=== PATIENT | female | born 1965 | race Caucasian/White ===

== ENCOUNTER 2019-08-16 13:39 | Outpatient (CLI) | payer OTHER, SELFPAY ==
--- NOTE | ~2019-08-16 | CT_ITS ---
EXAMINATION: CT sinus wo con DATE: 08/16/2019 14:09 INDICATION: Chronic sinusitis. TECHNIQUE: Computed tomography (CT) of the paranasal sinuses was performed without intravenous contra st. Iterative reconstruction technique was employed. The dose-length product was 278.92 mGy-cm. COMPARISON: None FINDINGS: The frontal sinuses are clear. There is mild mucosal thickening in the anterior ethmoid sin uses. The sphenoid sinuses are clear. There is a mucous retention cyst in left maxillary sinus. There is rightward deviation of posterior nasal septum. The ostiomeatal units are patent. IMPRESSION: 1. Mild mucosal thickening in the anterior ethmoid sinuses. Mucous retention cyst in left maxillary s inus. 2. Rightward deviation of posterior nasal septum. Reviewed, dictated and finalized at location A. IMPRESSION: 1. Mild mucosal thickening in the anterior ethmoid sinuses. Mucous retention cy st in left maxillary sinus. 2. Rightward deviation of posterior nasal septum.
== END 2019-08-16 13:40 | disposition home or self-care (01) ==
LOC: ANHIMG 13:50
PROVIDERS: PCP Internal Medicine; Visit Provider Internal Medicine
DX: J32.9 Chronic sinusitis, unspecified (principal); R05 Cough; J34.2 Deviated nasal septum
CPT/HCPCS: 70486

== ENCOUNTER → 2021-02-24 10:56 | Outpatient (CLI) | payer OTHER, SELFPAY ==
--- NOTE | ~2021-02-24 | MM_ITS ---
EXAMINATION: MM screening [facility] BI w mayuri HISTORY: Screening mammogram TECHNIQUE: Craniocaudal and mediolateral oblique 3-D tomosynthesis images were obtained and synthetic 2-D images were generated. CAD analysis was submitted and interpreted. COMPARISON: 10/30/2012, 11/29/2006 BREAST PARENCHYMAL COMPOSITION: The breasts are heterogeneously dense, which may obscure small masses . FINDINGS: There is no evidence of suspicious mass, calcification, or architectural distortion to sugg est malignancy in either breast. There has been no suspicious interval change. IMPRESSION: 1. No mammographic evidence of malignancy. 2. Recommend routine screening mammography in one year. BI-RADS Category 1: Negative Reviewed, dictated and finalized at location A.
--- NOTE | ~2021-02-24 | DEXA_ITS ---
Bone Density Report Name: Radha Salcido Age: 56 Sex: Female Ethnicity: White Date of : 1965 Indication: postmenopausal; screening for osteoporosis; height loss; hysterectomy; Referring Provider: Antoine*Gladys, Ashanti Study: Bone densitometry was performed. Exam Date: February 24, 2021 Accession number: [id number] Bone Density: Region BMD T-score Z-score Classification AP Spine (L1-L4) 1.058 0.1 1.4 Normal Femoral Neck (Left) 0.878 0.3 1.5 Normal Total Hip (Left) 1.029 0.7 1.6 Normal Femoral Neck (Right) 0.832 -0.2 1.0 Normal Total Hip (Right) 1.032 0.7 1.6 Normal Total Hip Mean 1.031 0.7 1.6 Normal World Health Organization criteria for BMD impression classify patients as: Normal (T-score at or above -1.0), Osteopenia (T-score between -1.0 and -2.5), or Osteoporosis (T-score at or below -2.5). 10-year Fracture Risk: FRAX not reported because: All T-scores for Spine Total, Hip Total, Femoral Neck at or above -1.0 Previous Exams: Region Exam Age BMD T-score BMD Change BMD Change Date g/cm2 vs Baseline vs Previous AP Spine(L1-L4) 02/24/2021 56 1.058 0.1 0.004 0.004 01/05/2017 51 1.054 0.1 Total Hip(Left) 02/24/2021 56 1.029 0.7 0.008 0.008 01/05/2017 51 1.021 0.6 Total Hip(Right) 02/24/2021 56 1.032 0.7 0.018 0.018 01/05/2017 51 1.014 0.6 *Denotes significance at 95% confidence level, LSC for AP Spine = 0.022 g/cm2, LSC for Total Hip = 0.027 g/cm2 Clinical Information Provided by Patient: Has used the following medications: Vitamin D, Calcium Has the following medical conditions: Hysterectomy Patient maximum height was 69 Menopause Age: 50 No regular weight bearing exercise Drinks caffeinated beverages Onset of menses at age 11 Number of children 0 Impression: The patient has normal bone mass. No significant bone loss was observed. Discussion: BONE DENSITY IS ABOVE THE MINIMUM DESIRABLE LEVEL AT ALL SKELETAL SITES TESTED. This patient?s bone mineral density is above the minimum desirable level (T-score -1.0 or better) at all sites measured. The patient should follow a healthful lifestyle (good nutrition with adequate calcium and vitamin D, and appropriate weight-bearing exercise). Follow-Up: Consider repeating this study in 5 years or sooner if there is some new clinical indication. Reported by: [facility] on 02/24/2021 11:23:00 AM.
== END ==
PROVIDERS: PCP Internal Medicine; Visit Provider Nurse Practitioner
DX: Z12.31 Encounter for screening mammogram for malignant neoplasm of breast (principal); Z13.820 Encounter for screening for osteoporosis; Z78.0 Asymptomatic menopausal state
CPT/HCPCS: 77063; 77067; 77080

== ENCOUNTER → 2022-09-01 13:33 | Outpatient (CLI) | payer BC, SELFPAY ==
--- NOTE | ~2022-09-01 | MM_ITS ---
EXAMINATION: MM screening [facility] BI w mayuri HISTORY: Screening mammogram TECHNIQUE: Craniocaudal and mediolateral oblique 3-D tomosynthesis images were obtained and synthetic 2-D images were generated. CAD analysis was submitted and interpreted. COMPARISON: 02/24/2021, 10/30/2012 bilateral screening mammogram examinations BREAST PARENCHYMAL COMPOSITION: The breasts are heterogeneously dense, which may obscure small masses . FINDINGS: Scattered punctate benign microcalcifications. There is no evidence of suspicious mass, riaz cification, or architectural distortion to suggest malignancy in either breast. There has been no kimmie picious interval change. IMPRESSION: 1. No mammographic evidence of malignancy. 2. Recommend routine screening mammography in one year. BI-RADS Category 1: Negative Reviewed, dictated and finalized at location A.
== END ==
PROVIDERS: PCP Internal Medicine; Visit Provider Obstetrics & Gynecology Gynecology
DX: Z12.31 Encounter for screening mammogram for malignant neoplasm of breast (principal)
CPT/HCPCS: 77063; 77067

== ENCOUNTER 2024-06-13 01:06 | Day surgery (SDC) | payer BC, SELFPAY ==
[2024-06-04 12:21] VITALS: BMI 32.5
[2024-06-13 11:05] VITALS: BP 144/76; PULSE 86; RESP 22; TEMP 36.3; O2SAT 99; BMI 32.7
[2024-06-13] MEDS: LACTATED RINGERS 1,000 ML 150 ML IV CONT (11:10)
--- NOTE | 2024-06-13 12:02 | PM.HPGS ---
History of Present Illness History of Present Illness Consent: Risks, benefits, and alternatives have been discussed and questions answered. Patient agrees to proceed with procedure. Chief complaint: screening colon Narrative: Radha Salcido is a 59 year old female here for screening colonoscopy, last one 10-11 years ago Review of Systems Review of Systems: All systems reviewed & are unremarkable except as noted in HPI and below PMFSH Past Medical History Medical History (Updated 06/12/24 @ 15:41 by Terrance Moore DO) Fibroid Pain of left thumb Blood donor Iron deficiency anemia Lipoma of neck Breast cancer screening Uterine leiomyoma Skin lesion of face Coccyxdynia Follow up Elevated LFTs BMI 36.0-36.9,adult BMI 35.0-35.9,adult Pre-diabetes Encounter for routine adult health examination without abnormal findings Chronic cough Recurrent sinus infections Vitamin D deficiency BMI 34.0-34.9,adult Encounter for screening mammogram for malignant neoplasm of breast Colon cancer screening Bronchitis Encounter for preventive health examination Hyperlipidemia Seasonal allergies On fpc drug therapy Hormone replacement therapy (HRT) Benign essential hypertension Family History Family History (Reviewed 05/09/24 @ 15:14 by Keturah Meehan [facility]) Mother Diabetes mellitus Family history of pancreatic cancer Family history of diabetes mellitus in first degree relative Father Malignant neoplasm of prostate Social History Social History (Reviewed 05/09/24 @ 15:14 by Keturah Meehan [facility]) Smoking status: Never smoker Second hand tobacco smoke exposure: No Alcohol intake: current Lack of Transportation: No Lack of Food: Never True Current Housing: I Have Housing Concerned About Future Housing: No Difficulty Paying Gas/Electric Bills: No Difficulty Paying for Meds: No Currently Unemployed: No Education: Master's Degree or Higher Difficulty w/ Childcare or Family Care: No Living arrangements: with family Occupation/Education: occupation Gender identity (if verbalized by the patient): Female Meds Home Medications and Allergies Home Medications ?Medication ?Instructions ?Recorded ?Confirmed ?Type biotin 10,000 mcg disintegrating 10,000 mcg PO DAILY 05/20/19 06/13/24 History tablet calcium carbonate (Calcium 600) 600 mg PO BID 05/20/19 06/13/24 History coenzyme Q10 100 mg tablet 200 mg PO DAILY 05/20/19 06/13/24 History magnesium 200 mg tablet 200 mg PO DAILY 05/20/19 06/13/24 History vitamin B complex 1 tablet PO DAILY 05/20/19 06/13/24 History omeg3-epa 150 mg-dha 100 mg-fish 1 cap PO ONCE 10/18/19 06/13/24 History oil-flaxseed oil 333 mg-E 61 unit cap ([employer] Nutrition) pen needle, diabetic 32 gauge x #100 ea 12/25/20 06/04/24 Rx 5/32 (BD Ultra-Fine Rolanda Pen Needle) estradiol 10 mcg vaginal insert 10 mcg vaginal 2XW 02/08/21 06/13/24 History (Imvexxy Maintenance Pack) fluticasone propionate 50 2 spray intranasal DAILY PRN 12/12/22 06/13/24 Rx mcg/actuation nasal seasonal allergies #9.9 mL spray,suspension lisinopril 10 See Rx Instructions .Route 05/04/23 06/13/24 Rx mg-hydrochlorothiazide 12.5 mg .COMPLEX #90 tabs tablet rosuvastatin 10 mg tablet See Rx Instructions .Route 04/22/24 06/13/24 Rx .COMPLEX #90 tabs semaglutide (weight loss) 2.4 2.4 mg (0.75 mL) subcut WEEKLY #3 05/09/24 06/13/24 Rx mg/0.75 mL subcutaneous pen mL injector (Wegovy) ferrous sulfate 325 mg (65 mg 325 mg PO DAILY 06/04/24 06/13/24 History iron) tablet (Feosol) Allergies Allergy/AdvReac Type Severity Reaction Status Date / Time MELON Allergy Unknown FACIAL Uncoded 06/13/24 11:02 SWELLING Vital Signs Vital Signs - 24 hr 06/13/24 11:05 Temperature 97.3 F L Pulse Rate 86 Respiratory Rate 22 H Blood Pressure 144/76 H Pulse Oximetry 99 Oxygen Delivery Room Air Exam Const: General: comfortable and no acute distress HENMT: Face/Nose/Sinus: Normal nares present Eyes: General: appearance normal, both eyes and all related structures Neck: Neck: no JVD Resp: Auscultation: clear to auscultation bilaterally Cardio: Rate: regular rate Rhythm: regular rhythm GI: Inspection: non-distended GI Palp: Yes Soft to palpation Skin: General skin exam: normal color Neuro: General: gait normal Speech: normal speech Extrem: General: normal to inspection Psych: Mental Status: mental status grossly normal Assessment and Plan Assessment and plan (1) Colon cancer screening: Code(s): Z12.11 - Encounter for screening for malignant neoplasm of colon Status: Acute Assessment and Plan: colonoscopy
--- NOTE | 2024-06-13 12:05 | P.PNAN_ITS ---
Anes - Initial Pre Proc Eval Procedure: Operation Date: 06/13/24 12:30 Proposed Procedures p Screening Colonoscopy - Rafy Cordon MD Date/Time: 06/13/24 12:05 Surgeon: Rafy Cordon MD Pre Op Diagnosis: screening colon Patient Data Age: 59 Gender: F Height: 1.75 m Weight: 100.5 kg Last Vital Signs Temp 36.3 C L 06/13/24 11:05 Pulse 86 06/13/24 11:05 Resp 22 H 06/13/24 11:05 BP 144/76 H 06/13/24 11:05 Pulse Ox 99 06/13/24 11:05 O2 Del Method Room Air 06/13/24 11:05 Allergies Allergy/AdvReac Type Severity Reaction Status Date / Time MELON Allergy Unknown FACIAL Uncoded 06/13/24 11:02 SWELLING Home Medications ?Medication ?Instructions ?Recorded ?Confirmed ?Type biotin 10,000 mcg disintegrating 10,000 mcg PO DAILY 05/20/19 06/13/24 History tablet calcium carbonate (Calcium 600) 600 mg PO BID 05/20/19 06/13/24 History coenzyme Q10 100 mg tablet 200 mg PO DAILY 05/20/19 06/13/24 History magnesium 200 mg tablet 200 mg PO DAILY 05/20/19 06/13/24 History vitamin B complex 1 tablet PO DAILY 05/20/19 06/13/24 History omeg3-epa 150 mg-dha 100 mg-fish 1 cap PO ONCE 10/18/19 06/13/24 History oil-flaxseed oil 333 mg-E 61 unit cap ([employer] Nutrition) pen needle, diabetic 32 gauge x #100 ea 12/25/20 06/04/24 Rx 5/32 (BD Ultra-Fine Rolanda Pen Needle) estradiol 10 mcg vaginal insert 10 mcg vaginal 2XW 02/08/21 06/13/24 History (Imvexxy Maintenance Pack) fluticasone propionate 50 2 spray intranasal DAILY PRN 12/12/22 06/13/24 Rx mcg/actuation nasal seasonal allergies #9.9 mL spray,suspension lisinopril 10 See Rx Instructions .Route 05/04/23 06/13/24 Rx mg-hydrochlorothiazide 12.5 mg .COMPLEX #90 tabs tablet rosuvastatin 10 mg tablet See Rx Instructions .Route 04/22/24 06/13/24 Rx .COMPLEX #90 tabs semaglutide (weight loss) 2.4 2.4 mg (0.75 mL) subcut WEEKLY #3 05/09/24 06/13/24 Rx mg/0.75 mL subcutaneous pen mL injector (Wegovy) ferrous sulfate 325 mg (65 mg 325 mg PO DAILY 06/04/24 06/13/24 History iron) tablet (Feosol) Patient hx anesthesia problems: none Family hx anesthesia problems: none Results Review: All pre-operative results and documents have been reviewed as part of the pre- operative evaluation. COUNTS INCLUDE 234 BEDS AT THE [facility] Past Medical History Medical History Fibroid Pain of left thumb Blood donor Iron deficiency anemia Lipoma of neck Breast cancer screening Uterine leiomyoma Skin lesion of face Coccyxdynia Follow up Elevated LFTs BMI 36.0-36.9,adult BMI 35.0-35.9,adult Pre-diabetes Encounter for routine adult health examination without abnormal findings Chronic cough Recurrent sinus infections Vitamin D deficiency BMI 34.0-34.9,adult Encounter for screening mammogram for malignant neoplasm of breast Colon cancer screening Bronchitis Encounter for preventive health examination Hyperlipidemia Seasonal allergies On fdc drug therapy Hormone replacement therapy (HRT) Benign essential hypertension Family History Family History Mother Diabetes mellitus Family history of pancreatic cancer Family history of diabetes mellitus in first degree relative Father Malignant neoplasm of prostate Social History Social History Smoking status: Never smoker Second hand tobacco smoke exposure: No Alcohol intake: current Lack of Transportation: No Lack of Food: Never True Current Housing: I Have Housing Concerned About Future Housing: No Difficulty Paying Gas/Electric Bills: No Difficulty Paying for Meds: No Currently Unemployed: No Education: Master's Degree or Higher Difficulty w/ Childcare or Family Care: No Living arrangements: with family Occupation/Education: occupation Gender identity (if verbalized by the patient): Female Anes - Eval Final PreProcedure Day of Procedure 06/13/24 12:05 Patient weight: obese Heart: regular rate and rhythm Lungs: normal air movement Airway: Mallampati scale class II Neurological: alert and oriented Last oral intake: >/= 8 hours ASA classification: II Emergent: no Anesthetic plan: proceed Anesthesia type and monitoring: general GIVS and standard monitoring Results Review: All pre-operative results and documents have been reviewed as part of the pre- operative evaluation. Informed Consent: The patient's anesthetic plan and its attendant risks and benefits were discussed with the patient/family/POA. Questions were solicited and answers provided to the satisfaction of the patient/family/POA.
[2024-06-13 12:26] VITALS: BP 94/71; PULSE 90; RESP 21; O2SAT 96
[2024-06-13 12:36] VITALS: BP 112/78; PULSE 75; RESP 19; O2SAT 100
[2024-06-13 12:46] VITALS: BP 126/70; PULSE 72; RESP 14; O2SAT 100
--- OUTSIDE RECORDS SUMMARY | 2024-06-14 03:45 | XMS_ITS | Clinical Summary ---
Author Organization [facility] Address [facility] 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 Gender Identity Not on file Sexual Orientation Not on file Plan of Treatment Health Maintenance Due Date Last Done Comments Cervical Cancer Screening Pa p Smear (Age 30 to 64) Every 3 Years 1965 Colorectal Cancer Screening Colonoscopy (10 Years) 1965 Annual Physical 1966 Hepatitis C 1981 DTaP, Tdap and Td Vaccines ( 1 - Tdap) 1982 Cervical Cancer Screening Pa p with HPV Testing (Age 30 to 64) Every 5 Years 1993 Cervical Cancer Screening wi th HPV 1993 Zoster Vaccines (1 of 2) 2013 Mammogram Screening 11/27/2021 11/28/2019, 05/29/2018 COVID-19 Vaccine (2023-2 5 season) 2024 Influenza Adult (#1) 2024 RSV Immunization or 60+ Years (1 - 1-dose 75+ series) 2038 Meningococcal Vaccine Aged Out No wai yuridia eligible based on patient's age to complete this topic Pneumococcal Vaccine: Pediatrics (0 to 5 Years) and At-Risk Patients (6 to 64 Years) Aged Out No longer eligible b ased on patient's age to complete this topic RSV Immunizations Under 20 Months Aged Out No longer eligible b ased on patient's age to complete this topic Procedures Procedure Name Priority Date/Time Associated Diagnosis Comments MG SCREENING W GARCIA DEANGELO DIGI Routine 11/28/2019 10:16 AM CDT Visit for screening mammogram from Last 3 Months or Most Recently Relevant to Health Maintenance Results * MG SCREENING W GARCIA DEANGELO DIGI (11/28/2019 10:16 AM CDT) Anatomical Region Laterality Modality Breast Bilateral Mammography 11/28/2019 3:28 PM CDT Impressions 11/28/2019 3:30 PM CDT IMPRESSION: No suspicious mammographic findings. Recommendation: 1. Routine Screening, BILATERAL Assessment: ACR BI-RADS 1 - NEGATIVE Interpreted By: True Cooper MD, 11/28/2019 3:28 PM Narrative 11/28/2019 3:30 PM CDT Examination: Screening bilateral mammogram Clinical history: Routine screening. No complaints. Comparison: 05/29/2018, 03/28/2017, 03/25/2016, 02/06/2015 Technique: Digital screening mammography of both breasts was performed. Breast tomosynthesis acquisitions were obtained and reviewed. ??This study was read with the assistance of a computer-aided detection system. Tissue density: The breast tissue is heterogeneously dense, which may obscure small masses. Findings: No suspicious masses, malignant appearing calcifications, skin thickening or other abnormalities are present. ??No significant change from the prior exam. us Mery Fuentes MD MAMMO Final Res ult from Last 3 Months or Most Recently Relevant to Health Maintenance Insurance Care Teams Surveying Technician Relationship Specialty Start Date End Date To Madsen MD PCP - General INTERNAL MEDICINE 05/24/18
== END 2024-06-13 12:56 | disposition home or self-care (01) ==
PROVIDERS: PCP Internal Medicine; Visit Provider Internal Medicine Gastroenterology
PROC: 0DJD8ZZ Inspection of Lower Intestinal Tract, Via Natural or Artificial Opening Endoscopic (ICD-10-PCS; CPT 45378; principal; 2024-06-13 12:30)
DX: Z12.11 Encounter for screening for malignant neoplasm of colon (principal); D12.3 Benign neoplasm of transverse colon; E66.9 Obesity, unspecified; Z68.32 Body mass index [BMI] 32.0-32.9, adult
CPT/HCPCS: 45385; 88305; J2003; J2704; J7120

== ENCOUNTER 2024-06-18 16:14 | Outpatient (CLI) | payer BC, SELFPAY ==
--- NOTE | ~2024-06-18 | MM_ITS ---
EXAMINATION: MM screening [facility] BI w mayuri HISTORY: Screening TECHNIQUE: Craniocaudal and mediolateral oblique 3-D tomosynthesis images were obtained and synthetic 2-D images were generated. CAD analysis was submitted and interpreted. COMPARISON: Comparison to multiple prior studies sequentially, with oldest reviewed study dated 10/2020. BREAST PARENCHYMAL COMPOSITION: Dense: The breasts are heterogeneously dense, which may obscure small masses FINDINGS: No significant change to benign-appearing bilateral breast calcifications. There is no evid ence of suspicious mass, calcification, or architectural distortion to suggest malignancy in either b reast. There has been no suspicious interval change. IMPRESSION: 1. No mammographic evidence of malignancy. 2. Recommend routine screening mammography in one year. BI-RADS Category 1: Negative Reviewed, dictated and finalized at location A. [employer]
== END 2024-06-18 16:15 | disposition home or self-care (01) ==
PROVIDERS: PCP Internal Medicine; Visit Provider Nurse Practitioner
DX: Z12.31 Encounter for screening mammogram for malignant neoplasm of breast (principal)
CPT/HCPCS: 77063; 77067